=== PATIENT | female | born 1970 | race Caucasian/White ===

== ENCOUNTER 2016-08-06 19:36 | Emergency (ER) | payer MEDICARE, OTHER | END 2016-08-06 22:49 | disposition home or self-care (01) | LOC: ER 19:36 | DX: T76.11XA Adult physical abuse, suspected, initial encounter (principal); S00.03XA Contusion of scalp, initial encounter; S00.83XA Contusion of other part of head, initial encounter; Y04.0XXA Assault by unarmed brawl or fight, initial encounter; Y92.009 Unspecified place in unspecified non-institutional (private) residence as the place of occurrence of the external cause; G93.2 Benign intracranial hypertension; Z79.899 Other long term (current) drug therapy; Z79.891 Long term (current) use of opiate analgesic; Z88.2 Allergy status to sulfonamides | CPT/HCPCS: 70450; 70486; 72125; 96372; 99284; 99284-25 ==

== ENCOUNTER 2016-11-18 17:49 | Emergency (ER) | payer MEDICARE, OTHER | END 2016-11-18 19:52 | disposition home or self-care (01) | LOC: ER 17:49 | DX: J20.9 Acute bronchitis, unspecified (principal); R05 Cough; M54.9 Dorsalgia, unspecified; F17.210 Nicotine dependence, cigarettes, uncomplicated; Z88.2 Allergy status to sulfonamides; Z79.899 Other long term (current) drug therapy; Z79.891 Long term (current) use of opiate analgesic | CPT/HCPCS: 94664; 99283; 99283-25 ==